=== PATIENT | male | born 1955 | race Caucasian/White ===

== ENCOUNTER 2018-05-27 06:08 | Day surgery (SDC) | payer OTHER ==
[2018-05-04 19:20] VITALS: BMI 34.0
[2018-05-27] MEDS ORDERED: Propofol 10 mg/ml Inj (20 ML) ONE (07:37)
--- NOTE | 2018-05-27 07:48 | CP.SDSHP ---
Same Day Surgery H & P - History Proposed Procedure: COLONSCOPY Pre-Op Diagnosis: SEE NOTES - Previous Medical/Surgical History Cardiac: Hypertension Endocrine/Metabolic: Thyroid Disease, Diabetes, Other Misc: Other Pain: 2.Mild Pain Previous Surgical History: COLON POLYPS - Allergies Allergies: Allergies Penicillins Allergy (Verified 05/01/18 14:19) ANAPHYLAXIS Sulfa (Sulfonamide Antibiotics) Allergy (Verified 05/26/18 09:19) ANAPHYLAXIS - Physical Exam General Appearance: N Vital Signs: Vital Signs 05/27/18 06:25 Temperature 97.5 F L Pulse Rate 67 Respiratory 19 Rate Blood Pressure 111/48 L O2 Sat by Pulse 98 Oximetry Mental Status: Alert & Oriented x3 Neuro: WNL Heart: Other Lungs: WNL GI: Other - {Optional Preform as Required} Breast: WNL Abdomen: Other Rectal: Other Integument: WNL : Other Ortho: WNL ENT: WNL - Impression Pt. Evaluated Today:Candidate for Anesthesia & Procedure: Yes - Date & Time Time: 07:48 Short Stay Discharge - Short Stay Discharge Admitting Diagnosis/Reason for Visit: HX COLONIC POLYPS Disposition: HOME/ ROUTINE Referrals: Saul Marr MD [Primary Care Provider] -
[2018-05-27] MEDS ORDERED: Belladonna-Phenobarbital PO ONE (09:00)
[2018-05-27 09:16] VITALS: TEMP 98
[2018-05-27 09:51] VITALS: BP 131/70; PULSE 77; RESP 11; O2SAT 97
== END 2018-05-27 10:20 | disposition home or self-care (01) ==
LOC: C.ENDO 06:08
PROVIDERS: ATTEND Specialist
DX: K57.30 Diverticulosis of large intestine without perforation or abscess without bleeding (principal); K64.8 Other hemorrhoids; Z86.010 Personal history of colon polyps
CPT/HCPCS: 45380; 82948; 88305; J2001; J2704